=== PATIENT | male | born 1990 | race African-American/Black ===

== ENCOUNTER 2021-11-24 09:57 | Emergency (ER) | payer OTHER, SELFPAY ==
[2021-11-24 09:58] VITALS: BP 154/91; PULSE 95; RESP 16; TEMP 36.4; O2SAT 100; BMI 32.5
--- NOTE | 2021-11-24 10:00 | RAD_ITS ---
STUDY: X-RAY - RIGHT ANKLE REASON FOR EXAM: Male, 31 years old. Ankle injury during basketball, pain TECHNIQUE: 3 view(s) of the ankle. COMPARISON: None. FINDINGS: Normal visualized distal tibia and fibula. Normal medial and lateral malleoli. Normal tibiotalar articulation and ankle mortise. Normal visualized talus and calcaneus. The visualized subtalar, talonavicular, calcaneocuboid and tarsal articulations are normal. The soft tissue structures are unremarkable. RAD/Ankle min 3 Views IMPRESSION: Normal x-ray examination of the ankle. Electronically Signed: Micaela Langley MD at 10:15 EST ,
--- NOTE | 2021-11-24 10:14 | ED.VIS.LOWEX ---
HPI History of Present Illness Chief Complaint: Lower Extremity Injury Informant: patient Occured/Mechanism Mechanism/Context: Yes injury Onset/Context/Timing Onset: Today Context: Sudden Onset Timing: Continuous Quality of Pain: Sharp Current Severity: Moderate Maximum Severity: Moderate Narrative Narrative: 31-year-old male no sniffing past medical history. Was playing basketball today when he pushed off and felt immediate pain in his right lower calf posterior ankle area. No fall or other trauma. Prior similar symptoms: No Recent Illness/Hospitalization: No PFSH PFSH Medical History Lab test negative for COVID-19 virus Home Medications multivitamin [Daily Multiple Vitamin] 1 ea PO DAILY 04/18/16 [History Last Taken Unknown] cetirizine 10 mg capsule 10 mg PO DAILY PRN 05/17/21 [History Last Taken Unknown] Allergy/AdvReac Type Severity Reaction Status Date / Time No Known Allergies Allergy Verified 11/24/21 09:59 Surgical History History of tonsillectomy and adenoidectomy Social History Smoking Status: Never smoker ROS ROS ED ROS Narrative No recent illness. Review of Systems ROS Unobtainable: Denies due to encephalopathy Constitutional Constitutional ED: Denies fever(s) Eyes Eyes: Denies change in vision ENT ENT ED: Denies ear pain Cardiovascular Cardiovascular: Denies chest pain Respiratory/Chest Respiratory/Chest: Denies dyspnea Gastrointestinal Gastrointestinal: Denies abdominal pain Genitourinary Genitourinary ED: Denies dysuria Musculoskeletal Musculoskeletal: Denies myalgias Integumentary Denies rash Neurologic Neurologic: Denies headache(s) Psychiatric Psychiatric: Denies depression Endocrine Endocrinology: Denies polyuria Hematologic/Lymphatic Hematologic/Lymphatic: Denies easy bruising Allergic/Immunologic Allergic/Immunologic ED: Denies urticaria EXAM Physical Exam Narrative Exam Narrative: 4-year-old male no acute distress HEENT, neck, heart lung abdominal exam is unremarkable. Right hip, knee and ankle are nontender. His right posterior calf appears have a deficit consistent with Achilles tendon rupture. He has limited plantar flexion of his foot. He is able to do dorsi flexion. With the patient lying supine on his abdomen Fritz squeeze test is positive on his right lower extremity. He has a good DP pulse. Able to wiggle his toes. Normal touch sensation. Const Vital Signs: 11/24/21 09:58 Temperature 97.6 F L Temperature Source Temporal Pulse Rate 95 Respiratory Rate 16 Blood Pressure 154/91 H Blood Pressure Mean 112 Pulse Ox 100 Oxygen Delivery Method Room Air Positive well nourished and well developed; Negative for obese, cachectic, contractures or unkempt General Appearance ED: well developed and NAD; Negative for unkempt, cachectic or contractures Nutritional Appearance: Negative for cachectic or obese HEENT Reports moist mucous membranes normocephalic and atraumatic Eyes PERRL Neck full ROM and supple Thyroid: Negative for tender Chest Wall inspection of chest normal and palpation of chest normal Resp normal respiratory effort, no retractions and clear to auscultation bilaterally Auscultation: Negative for rales, rhonchi or wheezes Cardio regular rate, regular rhythm, S1 normal heart sound, S2 normal heart sound and no murmurs GI non-tender, non-distended and no masses Auscultation: normoactive bowel sounds Palpation: soft Back/Spine no CVA tenderness Extremity normal to inspection and full ROM Extremity Narrative: Right distal calf soft tissue deficit consistent with Achilles tendon rupture. Decreased plantar flexion. Positive Fritz squeeze test on the right lower extremity. General Extremety ED: Negative for edema General Extremity: Negative for edema Neuro oriented x3 and moves all extremities Sensorium / Orientation: alert, oriented to person, oriented to place and oriented to time Psych mental status grossly normal Appearance: Negative for unkempt Skin no wounds Lesions: no lesions Rashes: no rashes MDM MDM MDM Narrative Medical decision making narrative: 31-year-old male concern for a right Achilles tendon rupture. X-ray was ordered in triage per nursing. Patient will be placed in a posterior short leg splint with his ankle at 45 degrees. Crutches and follow-up with orthopedics for further evaluation and suspected Achilles tendon repair. Motrin for pain. Radiography Diagnostic Testing: Right ankle x-ray, 3 views, interval itself shows no acute abnormality. No fracture. No dislocation. Discharge Plan Triage Chief Complaint: Lower Extremity Injury ED Provider: Pierce Wong Dx/Rx/DC Orders Clinical Impression: Achilles tendon rupture Instructions: Achilles Tendon Rupture Prescriptions: No Action All Day Allergy (cetirizine) 10 mg capsule 10 mg PO DAILY PRNRF: 0 multivitamin [Daily Multiple] 1 EACH tablet 1 ea PO DAILY RF: 0 Primary Care Provider: Care Physician,No Primary Referrals: Ronaldo Guerrero DO [STAFF PHYSICIAN] - Care Physician,No Primary [Primary Care Provider] - Activity Restrictions/Additional Instructions: Ice and elevate your right lower extremity to decrease pain and swelling. No weightbearing. Motrin and Tylenol for pain. Call and follow-up with an orthopedic doctor for further evaluation and suspected Achilles tendon repair. Disposition Disposition: Home, Self Care
[2021-11-24] MEDS: Ibuprofen 600 MG Tablet PO (11:00)
== END 2021-11-24 11:04 | disposition home or self-care (01) ==
LOC: ED 10:21
PROVIDERS: Emergency Provider Emergency Medicine; PCP Nurse Practitioner Family; Visit Provider Emergency Medicine
DX: S86.011A Strain of right Achilles tendon, initial encounter (principal); X50.9XXA Other and unspecified overexertion or strenuous movements or postures, initial encounter; Y93.67 Activity, basketball
CPT/HCPCS: 73610; 99284

== ENCOUNTER 2022-05-20 07:00 | Outpatient (RCR) | payer OTHER, SELFPAY ==
--- NOTE | 2022-01-31 17:40 | HP.PTEVAL ---
Patient's Visit Information ADILENE YANG is a 31 year old M referred to Physical Therapy by Dr. Samaria Fischer MD with a diagnosis of Achilles rupture right repair 12/07/21. Date of Evaluation: 01/31/22 Physical Therapist: Juan Herman, DPT, OCS, CSCS - Visit Plan Frequency: 3x /Week Duration: 4-6 Weeks Plan: 3x/week for 4 weeks to start for (pt is WBAT out of boot slowly)(no single leg heel raises until 03/09/22). 1. manual rollout gastroc and soleus and gentle stretching, manual ROM to R ankle. 2. NWB to WB strength and proprioception R ankle(progress bands to home). 3. Gait training and progression as able. ice as needed. - Subjective Tore achilles in October playing basketball pivotting, just turned and it popped. Also enjoys crossfit athlete. Had it repaired on 12/07/21 of complete rupture. NWB for 2 weeks, 2 weeks slight WB, then off crutches and always in family protection specialist or boot. Now can start to go out of boot. Wedges are out and he is flat in boot now. No pain. Tight in am and uncomfortable in am but works out quickly. Sleeps OK and not in boot. HEP: none yet, can move it when boot is off. 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 Basic ADLs are getting done I. Uses shower chair when needed.Stands in shower but does not move. Hobbies; crossfit, running and has two kids to play with 4 and 2. - Objective Boot on Right Leg walking in I in boot FWB R, without boot takes short hesitant steps on R. Can stand and shift weight well onto r., transfers I, no c/o pain. Incision posterior at achilles and healed wwell with only slight scarring . AROM R ankle DF 0 , inv 20, eversion 15 and PF 40 all slow and stiff., L ankle 7 DF, 55 PF, 30 inv and 20 eversion. Metatarsal stiff on R foot, big toe moves well, and good strength in big toe 4/5 R and 4+ L. strength ankle DF 4, PF NT, inv and ev at least 4-. Knee and hip strength R 5/5. Not overly tender in R achilles. Dons and doffs boot I today. - Balance/Special Test Scores Lower Extremity Functional Score: 46 - Goals Goal 1:: Walk without gait deviations in and out of PT WBAT no boot Goal Time Frame: 4-6 Weeks Goal 2:: Up and down steps reciprocally without rail Goal Time Frame: 4-6 Weeks Goal 3:: 7 degrees DF and single leg heel rasise without pain or problems as allowed by doctor. Goal Time Frame: 4-6 Weeks Goal 4:: Pt feel 90% back to normal and ready for workout crossfit. Goal Time Frame: 6-8 Weeks - Rehabilitation Potential Physical Therapy Diagnosis: stiff and weak R ankle s/p achilles rupture/repair. Rehabilitation Potential: Good - Anticipated Interventions Patient/Client Instruction: Educate patient on: Condition, Plan of Care For the Purpose of:: To increase ROM, To improve nutrient delivery to tissue, To improve muscle performance and motor function, To increase tolerance to activity/condition/position, To improve ability of physical actions for home/community/work/leisure, To improve gait and locomotor functions Therapeutic Exercise to Include: Strength training, Balance training, Flexibilty training, Gait and locomotor training, Passive ROM, Active ROM For the Purpose of:: To increase ROM, To improve nutrient delivery to tissue, To improve muscle performance and motor function, To increase tolerance to activity/condition/position, To improve ability of physical actions for home/community/work/leisure, To improve gait and locomotor functions Manual Therapy Techniques to Include: Scar massage, Mobilization, Passive ROM, Soft tissue mobilization For the Purpose of:: To increase ROM Cryotherapy (ice pack, ice massage): Yes For the Purpose of:: To decrease swelling/inflammation Thank you for the opportunity to evaluate your patient. For Medicare and Medicare HMO plans, please review the plan of care and approve it. It will need to be FAXED BACK to us at [phone] for Medicare purposes. For Medicare only, by signing this I certify the plan of care. Please let me know if there are questions or concerns regarding this plan of care. Physician Signature: Date:
--- NOTE | 2022-03-07 17:09 | HP.PTREVAL ---
Dr. Samaria Fischer MD, It has been my pleasure to treat ADILENE YANG over the last 13 visits for Achilles rupture right repair 12/07/21. Please see the progress note below for an update on the physical therapy plan of care! Subjective: Janie thayer OK, just had f/u with doctor. Still avoids some pushoff when he gets tired but can correct with focus. Doc was happy. Is to keep massaging it. Was unable to calf raise. She wants him to go 1-2x/week and continue therapy. Wants to do 2 days per week. No precautions and will f/u Sept 1. Objective/Function: 7 DF and 50 PF and 25 inv and 15 eversion. Walking is good but cannot push off consistently on R. Avoids forefoot landing on R on steps due to weakness and habit,. Overall improving but needs to do more [id number] and needs to be stronger. Plan Plan: 2x/week for 4 weeks for strength gastroc and gait pattern and functional progression of agility, gentle plyo once walking well, steps and function. Balance/Gait/Functional tests - Balance/Special Test Scores Lower Extremity Functional Score: 57 Goals Goal 1:: Walk without gait deviations in and out of PT WBAT no boot Goal Time Frame: 4-6 Weeks Goal Progress: Goal Met Goal 2:: Up and down steps reciprocally without rail Goal Time Frame: 4-6 Weeks Goal 3:: 7 degrees DF and single leg heel rasise without pain or problems as allowed by doctor. Goal Time Frame: 4-6 Weeks Goal 4:: Pt feel 90% back to normal and ready for workout crossfit. Goal Time Frame: 6-8 Weeks Goal Progress: 50 Goal 5:: Walk without gait deviations and steps using forefoot. Goal Time Frame: 4-6 Weeks Goal Progress: NEW GOAL Anticipated Interventions Patient/Client Instruction: Educate patient on: Condition, Plan of Care For the Purpose of:: To increase ROM, To improve nutrient delivery to tissue, To improve muscle performance and motor function, To increase tolerance to activity/condition/position, To improve ability of physical actions for home/community/work/leisure, To improve gait and locomotor functions Therapeutic Exercise to Include: Strength training, Balance training, Flexibilty training, Gait and locomotor training, Passive ROM, Active ROM For the Purpose of:: To increase ROM, To improve nutrient delivery to tissue, To improve muscle performance and motor function, To increase tolerance to activity/condition/position, To improve ability of physical actions for home/community/work/leisure, To improve gait and locomotor functions Manual Therapy Techniques to Include: Scar massage, Mobilization, Passive ROM, Soft tissue mobilization For the Purpose of:: To increase ROM Cryotherapy (ice pack, ice massage): Yes For the Purpose of:: To decrease swelling/inflammation Please do not hesitate to contact me at [phone] by phone or if you have questions or concerns regarding this new plan of care! Sincerely, Juan Herman, DPT, OCS, CSCS
--- NOTE | 2022-04-16 17:23 | HP.PTREVAL ---
Dr. Samaria Fischer MD, It has been my pleasure to treat ADILENE YANG over the last 21 visits for Achilles rupture right repair 12/07/21. Please see the progress note below for an update on the physical therapy plan of care! Subjective: Going well. Has been jogging for w/u for 3 minutes. No pain anymore, does have soreness but is doing eccentric calf raises and SL calf raises. Has been at football practice also. Has done some jumping. Is not overly limited at football practice, doing well and can back pedal and jog side to side. To doctor 05/30. Not limited at work. Home is normal. squtting is not 100% but can do up to 95#. Objective/Function: 8 degrees DF R, 55 PF, strength is weak in R PF body weight vs L and limited heel off ground to about 2 inches vs 5 on L. Steps reciprocal without rail normal gait. See goals and appropriate to continue toward new goal, old unmet goals and more funcitonal sports prior to doc f/u in 5 weeks, fair prognosis. Plan Plan: 2x/week for 4 weeks to progress strength of R gastroc soleus and slow progression of jogging, agility and plyo(ladder, graded direction change, shuttle jumps, BW agility. Balance/Gait/Functional tests - Balance/Special Test Scores Lower Extremity Functional Score: 64 Goals Goal 1:: Walk without gait deviations in and out of PT WBAT no boot Goal Time Frame: 4-6 Weeks Goal Progress: Goal Met Goal 2:: Up and down steps reciprocally without rail Goal Time Frame: 4-6 Weeks Goal Progress: Goal Met Goal 3:: 7 degrees DF and single leg heel rasise without pain or problems as allowed by doctor. Goal Time Frame: 4-6 Weeks Goal Progress: weak but met limited ROM Goal 4:: Pt feel 90% back to normal and ready for workout crossfit. Goal Time Frame: 4-6 Weeks Goal Progress: 75%, approp Goal 5:: Walk without gait deviations and steps using forefoot. Goal Time Frame: 4-6 Weeks Goal Progress: Goal Met Goal 6:: Pt able to jog 10 min, jump B and do agility and qucik steps without pain or funcitonal problem. Goal Time Frame: 4-6 Weeks Anticipated Interventions Patient/Client Instruction: Educate patient on: Condition, Plan of Care For the Purpose of:: To increase ROM, To improve nutrient delivery to tissue, To improve muscle performance and motor function, To increase tolerance to activity/condition/position, To improve ability of physical actions for home/community/work/leisure, To improve gait and locomotor functions Therapeutic Exercise to Include: Strength training, Balance training, Flexibilty training, Gait and locomotor training, Passive ROM, Active ROM For the Purpose of:: To increase ROM, To improve nutrient delivery to tissue, To improve muscle performance and motor function, To increase tolerance to activity/condition/position, To improve ability of physical actions for home/community/work/leisure, To improve gait and locomotor functions Manual Therapy Techniques to Include: Scar massage, Mobilization, Passive ROM, Soft tissue mobilization For the Purpose of:: To increase ROM Cryotherapy (ice pack, ice massage): Yes For the Purpose of:: To decrease swelling/inflammation Please do not hesitate to contact me at [phone] by phone or if you have questions or concerns regarding this new plan of care! Sincerely, Juan Herman, DPT, OCS, CSCS
--- NOTE | 2022-05-20 07:24 | HP.PTDCSUM ---
It has been my pleasure to treat ADILENE YANG referred by Dr. Samaria Fischer MD, with the diagnosis of Achilles rupture right repair 12/07/21 for a total of 26 visit(s). Discharge Date: 05/20/22 Please see the following information for a summary of their discharge status. Subjective: No pain, Still notices lacking strength, not avoiding any obvious activities. 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 Jogging with guys at practice. Sleep is good. Is back to Crossfit with scaling. Especially some distance running. Chopping to reroute and jumping for a bad pass OK. Not sprinting but can jog well, just limited in volume/distance. To doctor Sept 1. Feels like he can work toward spritning on his own with the knowledge I have given him. % Improvement: 75 Objective/Function: runs on TM without gait deficits today, steps one and two at a time are perfect. Sideshuffle and karioka look good on forefoot. ROM is to 10 degrees knee streagith and bent. Single leg hop is slower on R vs L, strength 5/5 R DF, ev, inv, PF but still weaker than L. Overall doing very well and without discomfort. Goal 1:: Walk without gait deviations in and out of PT WBAT no boot Goal Progress: Goal Met Goal 2:: Up and down steps reciprocally without rail Goal Progress: Goal Met Goal 3:: 7 degrees DF and single leg heel rasise without pain or problems as allowed by doctor. Goal Progress: weak but met limited ROM Goal 4:: Pt feel 90% back to normal and ready for workout crossfit. Goal Progress: 75%, approp Goal 5:: Walk without gait deviations and steps using forefoot. Goal Progress: Goal Met Goal 6:: Pt able to jog 10 min, jump B and do agility and qucik steps without pain or funcitonal problem. Goal Progress: Goal Met Plan: d/c to HEP Discharge Comments: Will continue to work out and stretch at home and slow progress of running speed adn f/u with doctor next week. If there are questions or concerns regarding this patient's physical therapy, please feel free to call me at [phone]. Thank you for the referral of this patient. Sincerely, Juan Herman, DPT, OCS, CSCS Balance/Gait/Functional tests - Balance/Special Test Scores Lower Extremity Functional Score: 75
== END 2022-05-20 14:41 | disposition home or self-care (01) ==
LOC: PT 07:00
PROVIDERS: PCP Nurse Practitioner Family; Referring Provider Orthopaedic Surgery; Visit Provider Orthopaedic Surgery
DX: S86.011D Strain of right Achilles tendon, subsequent encounter (principal)
CPT/HCPCS: 97110; 97140; 97161; 97164; 97530